=== PATIENT | female | born 1950 | race Caucasian/White ===

== ENCOUNTER 2019-05-28 17:49 | Inpatient (IN) ==
[2019-06-05 15:03] VITALS: BP 104/36
== END 2019-06-05 16:16 | disposition home or self-care (01) | DRG 291 ==
LOC: ED 17:49 → 3N 22:02 → SUATTDRO 22:02
PROVIDERS: ATTEND Internal Medicine

== ENCOUNTER 2019-06-22 05:16 | Inpatient (IN) ==
[2019-06-22 07:45] LABS: URINE SOURCE CATH
[2019-06-22 07:48] LABS: BILIRUBIN URINE NEGATIVE (NEGATIVE); BLOOD URINE NEGATIVE (NEGATIVE); COLOR YELLOW; GLUCOSE URINE NEGATIVE (NEGATIVE); KETONE URINE TRACE mg/dL (NEGATIVE); LEUKOCYTES URINE NEGATIVE (NEGATIVE); NITRITE URINE NEGATIVE (NEGATIVE); PROTEIN URINE 30 mg/dL (NEGATIVE); SP GRAVITY URINE 1.016; TURBIDITY URINE CLEAR (CLEAR); UR EPITHELIAL CELLS <10 /HPF (<10); URINE BACTERIA NEGATIVE /HPF; URINE RBC <10 /HPF (<10); URINE WBC <10 /HPF (<10); UROBILINOGEN URINE NORMAL (NORMAL)
[2019-06-22 19:33] LABS: INR 1.12; PROTIME 14.6 Seconds (11.0-16.0)
[2019-06-23 06:44] LABS: INR 1.2; PROTIME 15.4 Seconds (11.0-16.0)
[2019-06-23 06:55] LABS: BASO# 0.02 X1000 (0.0-0.2); BASO% 0.2 % (0.0-0.8); HEMATOCRIT 33.6 % (37.0-47.0); HEMOGLOBIN 9.8 g/dL (12.0-16.0); IMM GRAN# 0.03 X1000 (0.0-0.04); IMM GRAN% 0.3 % (0.0-0.5); LYMPH# 1.01 X1000 (1.2-3.4); LYMPH% 10.1 % (20.5-51.1); MCH 28.2 PG (27-31); MCHC 29.2 g/dL (33-37); MCV 96.6 FL (81-99); MONO# 0.98 X1000 (0.11-0.59); MONO% 9.8 % (1.7-9.3); MPV 11.4 FL (7.4-10.4); NEUT# 7.84 X1000 (1.4-6.5); NEUT% 78.6 % (42.2-75.2); PLT 191 X1000 (130-400); RBC 3.48 XMIL (4.2-5.4); RDW 16.2 % (11.5-14.5); WBC 9.98 X1000 (4.8-10.8)
[2019-06-23 07:23] LABS: ALB/GLOB RATIO 1.1; CALCIUM 9.8 mg/dL (8.8-10.2); CREATININE 1.2 mg/dL (0.5-0.9); POTASSIUM 3.7 mmol/L (3.5-5.1); TOTAL BILIRUBIN 0.5 mg/dL (0.20-1.00); TOTAL PROTEIN 5.8 g/dL (6.3-8.3)
[2019-06-24 07:33] LABS: INR 1.07
[2019-06-24 07:41] LABS: CALCIUM 9.8 mg/dL (8.8-10.2); CREATININE 1.1 mg/dL (0.5-0.9); POTASSIUM 3.7 mmol/L (3.5-5.1)
[2019-06-24 11:12] LABS: HEMATOCRIT 32.3 % (37.0-47.0); HEMOGLOBIN 9.6 g/dL (12.0-16.0); MCH 28.6 PG (27-31); MCHC 29.7 g/dL (33-37); MCV 96.1 FL (81-99); RBC 3.36 XMIL (4.2-5.4); RDW 16.3 % (11.5-14.5); WBC 6.62 X1000 (4.8-10.8)
[2019-06-25 06:53] LABS: HEMATOCRIT 33.8 % (37.0-47.0); HEMOGLOBIN 10.1 g/dL (12.0-16.0)
[2019-06-25 07:01] LABS: INR 1.19; PROTIME 15.3 Seconds (11.0-16.0)
[2019-06-25 07:16] LABS: CALCIUM 10.3 mg/dL (8.8-10.2); CREATININE 1.2 mg/dL (0.5-0.9); MAGNESIUM 2.1 mg/dL (1.5-2.7)
[2019-06-26 06:55] LABS: HEMOGLOBIN 9.9 g/dL (12.0-16.0)
[2019-06-26 07:09] LABS: INR 1.52; PROTIME 18.6 Seconds (11.0-16.0)
[2019-06-26 07:21] LABS: CALCIUM 10.5 mg/dL (8.8-10.2); CREATININE 1.3 mg/dL (0.5-0.9); POTASSIUM 4.4 mmol/L (3.5-5.1)
[2019-06-27 07:33] LABS: BASO# 0.01 X1000 (0.0-0.2); BASO% 0.2 % (0.0-0.8); EOS% 3.3 % (0.0-10.0); HEMATOCRIT 32.5 % (37.0-47.0); HEMOGLOBIN 9.5 g/dL (12.0-16.0); IMM GRAN# 0.04 X1000 (0.0-0.04); IMM GRAN% 0.7 % (0.0-0.5); LYMPH# 0.73 X1000 (1.2-3.4); MCH 27.5 PG (27-31); MCHC 29.2 g/dL (33-37); MCV 94.2 FL (81-99); MONO# 0.91 X1000 (0.11-0.59); MONO% 14.9 % (1.7-9.3); MPV 10.3 FL (7.4-10.4); NEUT% 68.9 % (42.2-75.2); PLT 246 X1000 (130-400); RBC 3.45 XMIL (4.2-5.4); RDW 16.3 % (11.5-14.5); WBC 6.09 X1000 (4.8-10.8)
[2019-06-27 07:54] LABS: CALCIUM 9.8 mg/dL (8.8-10.2); CREATININE 1.1 mg/dL (0.5-0.9); POTASSIUM 3.9 mmol/L (3.5-5.1)
[2019-06-27 08:06] LABS: INR 2.51; PROTIME 27.7 Seconds (11.0-16.0)
[2019-06-27 11:22] VITALS: BP 138/57
== END 2019-06-27 13:49 | disposition home or self-care (01) | DRG 330 ==
LOC: SURHOLD 05:16 → 4N 07:22
PROVIDERS: ADMIT Internal Medicine; ATTEND Surgery

== ENCOUNTER 2019-07-05 04:36 | Inpatient (IN) ==
[2019-07-05] MEDS ORDERED: DEMEROL IV ONE (05:17)
[2019-07-05] MEDS ORDERED: ZOFRAN IV ONE (05:17)
--- NOTE | 2019-07-05 06:48 | PROVIDER DOCUMENTATION ---
HPI-Rash/Wound/ReCheck - General Chief Complaint: Post Op Complaint Stated Complaint: SYLVESTER CAME OUT AGAIN Time Seen by Provider: 07/05/19 04:51 Source: patient, family Allergies/Adverse Reactions: Allergies Allergy/AdvReac Type Severity Reaction Status Date / Time codeine Allergy Mild HIVES Verified 07/05/19 05:08 latex Allergy RASH Verified 07/05/19 05:08 Home Medications: Home Medication List Medication Instructions Recorded Confirmed Last Taken Type PRAVAstatin [Pravachol] 40 mg PO QHS 05/14/16 07/05/19 06/21/19 19:30 History Amiodarone HCl 200 mg PO DAILY 01/22/18 07/05/19 06/22/19 05:37 History Nebivolol [Bystolic] 5 mg PO DAILY 01/22/18 07/05/19 06/22/19 05:00 History Zolpidem Tartrate 5 mg PO QHS 01/22/18 07/05/19 06/21/19 19:30 History Torsemide [Demadex] 40 mg PO DAILY #60 tab 01/24/18 07/05/19 06/21/19 09:00 Rx Albuterol 2.5MG/Ipratrop 0.5MG 1 appful INH Q4-6H PRN PRN 05/29/19 07/05/19 06/22/19 04:30 History [Duoneb (A & A)] Budesonide 1 applicatn INH Q4-6H PRN PRN 05/29/19 07/05/19 06/22/19 04:35 History Divalproex [Depakote] 500 mg PO DAILY 05/29/19 07/05/19 06/22/19 05:30 History Iron,Carbonyl/Ascorbic Acid [Iron 1 tab PO DAILY 05/29/19 07/05/19 06/21/19 08:00 History 100-Vitamin C Tablet] Levothyroxine [Synthroid] 125 microgm PO DAILY 05/29/19 07/05/19 06/21/19 08:00 History Pramipexole [Mirapex] 0.5 mg PO QHS 05/29/19 07/05/19 06/21/19 19:30 History Folic Acid 1 mg PO BID #60 tab 06/05/19 07/05/19 06/21/19 19:30 Rx Pantoprazole [Protonix] 40 mg PO DAILY #90 tab 06/05/19 07/05/19 06/22/19 05:00 Rx Warfarin [Coumadin] 2 mg PO DIRECTED 06/16/19 07/05/19 06/01/19 20:00 History Tramadol [Ultram] 50 mg PO Q6H PRN PRN #15 tab 06/27/19 07/05/19 Unknown Rx Warfarin [Coumadin] 4 mg PO DIRECTED 06/27/19 07/05/19 Unknown History Hydrocodone/Acetaminophen [[place] 1 - 2 ea PO Q4-6H PRN PRN #16 tab 06/28/19 07/05/19 Unknown Rx 5-325 Tablet] - History of Present Illness-Dermatology Nature of Presenting Problem: 69 y/o WF return to Er for further wound dehiscence of abdominal surgical wound. She was seen here last night for similar complaint that was much smaller at that time. Location: reports: torso (ventral abdominal wall) Quality: reports: burning, painful Severity: reports: moderate Onset/Duration: reports: 24 hours ago Timing: reports: still present, getting worse Context/Associated Symptoms: reports: incised wound (recent bowel resection for colon mass per pt.) Similar Symptoms Previously?: Yes Recently seen or treated by another doctor?: Yes - Recheck Treated days ago.: 1 Previous Treatment: other (wound dehiscense) Symptoms since procedure:: reports: pain Review of Systems - Adult - REVIEW OF SYSTEMS - ADULT Constitutional: reports: no symptoms reported, see HPI Eyes: reports: no symptoms reported, see HPI Ears, Nose, Mouth & Throat: reports: no symptoms reported, see HPI Cardiovascular: reports: no symptoms reported, see HPI Respiratory: reports: no symptoms reported, see HPI Gastrointestinal: reports: no symptoms reported, see HPI Genitourinary: reports: no symptoms reported, see HPI Musculoskeletal: reports: no symptoms reported, see HPI Integumentary: reports: see HPI, other (open abdominal wound) Neurological: reports: no symptoms reported, see HPI Psychiatric: reports: no symptoms reported, see HPI Endocrine: reports: no symptoms reported, see HPI Hematologic/Lymphatic: reports: no symptoms reported, see HPI Allergic/Immunologic: reports: no symptoms reported, see HPI All Other Systems: Reviewed and Negative Past History - Adult - PAST MEDICAL HISTORY-ADULT Review of Records: reports: Nursing Assessment Review, Medications Reviewed, Social history reviewed & non-contributory. Major Childhood Illnesses: reports: denies history Cardiovascular: reports: A-Fib, CAD, HTN, hyperlipidemia, CT Respiratory: reports: asthma, COPD, sleep apnea Gastrointestinal: reports: cancer (colon and liver), GERD, liver disease (cancer) Obstetrical/Gynecological: reports: denies history Genitourinary: reports: denies history Musculoskeletal: reports: denies history Neurological: reports: CVA, TIA Endocrine/Immune: reports: thyroid disorder Other Conditions: reports: denies history - PRIOR SURGERIES/PROCEDURES Surgical/Procedure History: reports: recent surgery (colon resection 06/22/19), appendectomy, cholecystectomy, cardiac stent, hysterectomy, bowel surgery (colon resection) - IMMUNIZATION STATUS Childhood Immunizations: See Nurse Assessment Flu Vaccine: See Nurse Assessment - FAMILY HISTORY Family History: CAD over 55 yo Physical Exam-General - PHYSICAL EXAM-ADULT Initial Vital Signs Reviewed: Yes - CONSTITUTIONAL General Appearance: appears well, alert, no apparent distress - EYES Eyes: PERRL/EOMI - HEAD, EARS, NOSE, MOUTH & THROAT HENMT: normocephalic/atraumatic, moist mucous membranes - NECK Neck: non-tender, full range of motion, supple, normal inspection - RESPIRATORY Respiratory: chest non-tender, lungs clear, normal breath sounds, no pleuratic chest pain, no respiratory distress, no accessory muscle use - CARDIOVASCULAR Cardiovascular: normal peripheral pulses, regular rate, rhythm, no edema, no gallop, no JVD, no murmur - GASTROINTESTINAL (ABDOMEN) Abdominal Exam: normal bowel sounds, non tender, soft, no organomegaly, no pulsatile mass - LYMPHATIC Lymphatic: no adenopathy - MUSCULOSKELETAL Back Exam: normal inspection, no CVA tenderness, no vertebral tenderness Extremity: normal range of motion, non-tender, normal gait, normal inspection, no pedal edema, no calf tenderness - SKIN Integumentary: erythema, tenderness, other (approximately 12 cm wound dehiscence to abdominal wall at surgical site) - NEUROLOGIC Neurologic: customer support associate II-XII nml as tested, grossly normal, no motor/sensory deficits - PSYCHIATRIC Psych/Mental Status: normal mood/affect, normal thought content, normal thought process, oriented x 3 Progress - PLAN OF CARE/RESULTS Progress/Plan/Lab Results: Vital Signs - 8 hr 12/22/19 04:43 Temperature 98.2 F Pulse Rate 52 L Respiratory Rate 15 Blood Pressure 126/58 O2 Sat by Pulse Oximetry 76 L Orders Category Date Time Status Meperidine [Demerol] Med 07/05/19 05:17 Discontinued 25 mg IV NOW ONE Ondansetron [Zofran] Med 07/05/19 05:17 Discontinued 4 mg IV NOW ONE - CONSULTS/PCP/HOSPITALIST Notification #1 *Consult/PCP/Hospitalist*: Dr Yan Time Discussed: 06:40 Consult Disposition: Will see in ED, Admit Departure - Departure Date of Disposition Decision: 07/05/19 Time of Disposition Decision: 06:53 DIAGNOSIS: Wound dehiscence, surgical Disposition: ADMITTED INPATIENT 09 Certified Medical Emergency: Emergent Condition: Fair Referrals and Follow-Ups: Kalpesh Knox MD [Primary Care Provider] - - Critical Care Note This patient required my direct & personal management of CC.: No Attestation - Physician/ ROVERTO Attestation Patient care was provided by Advanced Practice Provider:: No The physician spent face to face time with patient:: Yes Advanced Practice Provider documentation review:: Supervising physician onsite and consulted in the evaluation and care of this patient. The physician did have a face to face encounter with the patient.
[2019-07-05] MEDS ORDERED: FENTANYL ONE (08:19)
[2019-07-05] MEDS ORDERED: DIPRIVAN 1% ONE (08:20)
[2019-07-05] MEDS ORDERED: XYLOCAINE-MPF 2% ONE (08:24)
[2019-07-05] MEDS ORDERED: ROBINUL ONE ×2 (08:24→09:26)
[2019-07-05] MEDS ORDERED: QUELICIN (DOSE) ONE (08:24)
--- NOTE | 2019-07-05 08:29 | HISTORY AND PHYSICAL ---
HISTORY OF PRESENT ILLNESS: Ms. Tejal Ferro is a 69-year-old white female, patient of Dr. Knox, who on 06/22/2019 underwent a colon resection for what appears to be metastatic colon cancer. She is to see him tomorrow in our outpatient offices, but presented to the emergency department with a wound dehiscence. We are asked to evaluate it. PAST MEDICAL HISTORY: Atrial fibrillation, coronary artery disease, hypertension, hyperlipidemia, history of VA, asthma, COPD, sleep apnea, gastroesophageal reflux disease, history of TIA, hypothyroidism. PAST SURGICAL HISTORY: Colon resection on 06/22/[address] Knox, appendectomy, cholecystectomy, cardiac stent, hysterectomy. MEDICATIONS: [place], Coumadin, tramadol, Protonix, vitamins, Mirapex, Depakote, budesonide, albuterol, Demadex, zolpidem, Bystolic, amiodarone, Pravachol. ALLERGIES: Codeine and latex. REVIEW OF SYSTEMS: Evidently, she has metastatic disease to her liver. Otherwise, the review of systems was essentially negative, except for the history of present illness. FAMILY HISTORY: Reviewed and is noncontributory. PHYSICAL EXAMINATION: VITAL SIGNS: Her temperature is 98.2 degrees, pulse rate 52, blood pressure 126/58, O2 saturation 76%, but she has no work of breathing. GENERAL: Ms. Ferro is an older lady in no acute distress. HEENT: She has no jaundice. No oral lesions. No cervical or supraclavicular lymphadenopathy. HEART: Her heart has an irregular rate. LUNGS: She had some expiratory wheezing, but no significant work of breathing. ABDOMEN: Her abdomen has mostly an upper midline incision, which is dehisced, and there is small bowel visible within the wound. Her abdomen is not tightly distended. RECTAL/VAGINAL: Not performed. EXTREMITIES: She does have palpable femoral pulses. She has no significant peripheral edema. NEUROLOGIC: She has no focal deficit. IMPRESSION: Wound dehiscence in a 69-year-old lady, status post colon resection per Dr. Knox on 06/22/2019. She has multiple medical problems, including atrial fibrillation, on Coumadin. PLAN: Urgent return to the operating room for exploratory laparotomy and reclosure of her upper midline incision. I have discussed this in detail with the patient and her family at the bedside, including risks of bleeding, infection, injury to the bowel, and ventral hernia. She understands her increased risk of bleeding because of her Coumadin, and the need for surgery, and she wants to proceed. cc: Stefania Yan MD
[2019-07-05 08:44] LABS: BASO# 0.01 X1000 (0.0-0.2); BASO% 0.1 % (0.0-0.8); EOS# 0.14 X1000 (0.0-0.7); EOS% 1.3 % (0.0-10.0); HEMATOCRIT 31.1 % (37.0-47.0); HEMOGLOBIN 9.2 g/dL (12.0-16.0); IMM GRAN% 0.9 % (0.0-0.5); LYMPH# 0.99 X1000 (1.2-3.4); LYMPH% 9.3 % (20.5-51.1); MCH 26.9 PG (27-31); MCHC 29.6 g/dL (33-37); MCV 90.9 FL (81-99); MONO# 1.25 X1000 (0.11-0.59); MONO% 11.7 % (1.7-9.3); MPV 9.8 FL (7.4-10.4); NEUT# 8.18 X1000 (1.4-6.5); NEUT% 76.7 % (42.2-75.2); PLT 451 X1000 (130-400); RBC 3.42 XMIL (4.2-5.4); RDW 16.4 % (11.5-14.5); WBC 10.67 X1000 (4.8-10.8)
[2019-07-05 09:08] LABS: INR 6.68; PROTIME 60.8 Seconds (11.0-16.0); PTT 110.1 Seconds (22.3-41.8)
[2019-07-05] MEDS ORDERED: KEFZOL 1 GM/D5W 1 GM/50 ML IVPB IV ONE (09:11)
[2019-07-05 09:12] LABS: CALCIUM 9.2 mg/dL (8.8-10.2); CREATININE 1.2 mg/dL (0.5-0.9); POTASSIUM 3.8 mmol/L (3.5-5.1)
[2019-07-05] MEDS ORDERED: KEFZOL 1 GM/D5W 1 GM/50 ML IVPB ONE (09:14)
[2019-07-05] MEDS ORDERED: EPHEDRINE ONE (09:14)
[2019-07-05] MEDS ORDERED: ZEMURON ONE ×2 (09:20→09:58)
[2019-07-05] MEDS ORDERED: DECADRON ONE (09:26)
[2019-07-05] MEDS ORDERED: ZOFRAN ONE (09:26)
[2019-07-05] MEDS ORDERED: NEOSTIGMINE ONE (09:27)
[2019-07-05 10:05] LABS: INR 7.03; PROTIME 63.3 Seconds (11.0-16.0)
[2019-07-05] MEDS ORDERED: BRIDION ONE (10:20)
[2019-07-05] MEDS ORDERED: D5 1/2 NS + KCL 20 MEQ 1,000 ML ONE (10:38)
[2019-07-05] MEDS ORDERED: OFIRMEV 1000 MG/ISOTONIC SOLN 1,000 MG/100 ML BOTTLE ONE (10:38)
--- NOTE | 2019-07-05 10:54 | Diag Imaging Result Doc PS360 ---
EXAM: CHEST-PORTABLE INDICATION: post op CVL placement TECHNIQUE: One view COMPARISON: 06/05/2019 FINDINGS: There is a newly placed right IJ line. The tip projecting over the lower SVC a few centimeters superior to the atriocaval junction in the expected position. The central vasculature is prominent and there is interstitial thickening indicating pulmonary venous congestion and interstitial edema. There is no discrete pleural fluid collection or pneumothorax. There is stable cardiomegaly. IMPRESSION: 1.Interval placement of right CVL with no evidence of pneumothorax. 2.Findings indicative of pulmonary venous congestion and pulmonary edema. Electronically signed by Jackson Guerrero 07/05/2019 10:52 AM
[2019-07-05] MEDS ORDERED: DUONEB (A & A) INH ONE (10:56)
--- NOTE | 2019-07-05 10:57 | OPERATIVE NOTE ---
PROCEDURE DATE: 07/05/2019 PREOPERATIVE DIAGNOSIS: Upper midline wound dehiscence, status post colon resection for metastatic colon cancer. POSTOPERATIVE DIAGNOSIS: Upper midline wound dehiscence, status post colon resection for metastatic colon cancer. PRINCIPAL PROCEDURE: Exploratory laparotomy with lysis of adhesions and re-closure of upper midline wound dehiscence. SURGEON: Stefania Yan MD. PICKER/PULLER: Steph Cevallos RN. ANESTHESIA: General. ESTIMATED BLOOD LOSS: 100 mL. DRAINS: None. INDICATIONS: Tejal Ferro is a 69-year-old white female who on 06/22/2019 underwent an open colon resection for metastatic colon cancer per Dr. Knox. Her wound dehisced over the last 24 hours. She presented to the emergency department. An urgent surgery was recommended to reclose her abdomen. FINDINGS: The entire length of the upper midline incision dehisced, and small bowel was in the wound. We mobilized the adhesions to the anterior abdominal wall circumferentially around the upper midline incision, and we used retention sutures and fascial sutures to reclose the wound. DESCRIPTION OF PROCEDURE: The patient was brought to the operating room, placed supine, received general anesthesia, and was intubated. A Myles catheter tube was placed. Anesthesia, Dr. Hill Plasencia, placed a central venous line in the right side of neck. It must be noted that her INR was elevated because she had been on Coumadin for atrial fibrillation, but we felt that this case was urgent, and we moved ahead. She did receive some fresh frozen plasma during the case. There was not any undue bleeding intra-abdominally. I carefully took down using finger fracture the small bowel that was adhered to the wound and the anterior abdominal wall circumferentially around the open or dehisced upper midline incision. I had to use the cautery to transect some of the fatty tissue. I was able to take down all the adhesions between the bowel and omentum and the anterior abdominal wall. I was able to take it circumferentially around the upper midline incision so that I had room for retention sutures. There was no evidence of a small bowel fistula or undrained intra-abdominal infection. I placed #2 Prolene retention sutures along the length of the wound. And before tying these retention sutures, I reapproximated the fascia with a running #1 Prolene stitch. I used a thin ribbon to make sure that the stitches were placed correctly within the fascia and not injuring the bowel below. I tied my retention sutures as I was closing the fascia with a running #1 Prolene stitch. I did not close the skin but packed it open with iodoform gauze to prevent wound infection. The fascia was closed with a running #1 Prolene stitch, and this closure was reinforced with interrupted simple retention sutures. The wound was then packed open with iodoform gauze. Dressings were applied. An abdominal binder was also placed. Her Myles catheter tube remains in place. She will go to the recovery room, and plans are for her to go to the floor as long as she does well waking up. cc: Stefania Yan MD
[2019-07-05 11:07] LABS: URINE SOURCE CATH
[2019-07-05 11:16] LABS: BILIRUBIN URINE NEGATIVE (NEGATIVE); BLOOD URINE NEGATIVE (NEGATIVE); COLOR YELLOW; GLUCOSE URINE NEGATIVE (NEGATIVE); KETONE URINE NEGATIVE (NEGATIVE); LEUKOCYTES URINE NEGATIVE (NEGATIVE); NITRITE URINE NEGATIVE (NEGATIVE); PH URINE 5.5; PROTEIN URINE NEGATIVE (NEGATIVE); TURBIDITY URINE CLEAR (CLEAR); UROBILINOGEN URINE NORMAL (NORMAL)
[2019-07-05 11:17] LABS: UR EPITHELIAL CELLS <10 /HPF (<10); URINE BACTERIA NEGATIVE /HPF; URINE RBC <10 /HPF (<10); URINE WBC <10 /HPF (<10)
[2019-07-05] MEDS: PHENERGAN ONE ×2 (11:18→11:47)
[2019-07-05] MEDS: MORPHINE ONE ×3 (11:20→11:42)
[2019-07-05] MEDS ORDERED: DUONEB (A & A) ONE (11:40)
[2019-07-05] MEDS: D5 1/2 NS + KCL 20 MEQ 1,000 ML IV SCH (12:50)
[2019-07-05] MEDS: DUONEB (A & A) INH SCH ×3 (15:22→23:39)
[2019-07-05] MEDS: OFIRMEV 1000 MG/ISOTONIC SOLN 1,000 MG/100 ML BOTTLE IV SCH ×2 (16:05→21:23)
[2019-07-05] MEDS: KEFZOL 1 GM/D5W 1 GM/50 ML IVPB IV SCH ×2 (16:57→21:20)
[2019-07-05] MEDS: PULMICORT INH SCH (19:30)
[2019-07-05] MEDS: AMBIEN PO SCH (21:20)
[2019-07-05] MEDS: PRAVACHOL PO SCH (21:20)
[2019-07-05] MEDS: MIRAPEX PO SCH (21:20)
[2019-07-06] MEDS: KEFZOL 1 GM/D5W 1 GM/50 ML IVPB IV SCH ×4 (03:32→22:51)
[2019-07-06] MEDS: D5 1/2 NS + KCL 20 MEQ 1,000 ML IV SCH ×2 (03:32→17:39)
[2019-07-06] MEDS: OFIRMEV 1000 MG/ISOTONIC SOLN 1,000 MG/100 ML BOTTLE IV SCH ×4 (03:32→22:50)
[2019-07-06] MEDS: MORPHINE IV PRN ×2 (03:46→20:52)
[2019-07-06] MEDS: PROTONIX PO SCH (06:13)
[2019-07-06] MEDS: SYNTHROID PO SCH (06:13)
--- NOTE | 2019-07-06 06:43 | GENERAL SURGERY PROGRESS NOTE ---
DATE: 07/06/2019 SUBJECTIVE: Reviewed notes from the weekend. Discussed with Dr. Yan. The patient had a dehiscence and had to go emergently to the operating room. She has been doing okay since then. She has been hemodynamically stable. She has been on a clear liquid diet. She has had an issue with her INR being above 7. She had a repeat INR this morning. She takes her Coumadin normally. She was given FFP. Given her medical comorbidities, we will have the hospitalist evaluate her. We will continue current treatment. cc: MD Stefania Vora MD
[2019-07-06 06:47] LABS: EOS# 0.02 X1000 (0.0-0.7); EOS% 0.2 % (0.0-10.0); HEMATOCRIT 29.5 % (37.0-47.0); HEMOGLOBIN 8.6 g/dL (12.0-16.0); IMM GRAN# 0.07 X1000 (0.0-0.04); IMM GRAN% 0.7 % (0.0-0.5); LYMPH# 0.66 X1000 (1.2-3.4); LYMPH% 6.5 % (20.5-51.1); MCHC 29.2 g/dL (33-37); MCV 92.8 FL (81-99); MONO# 0.91 X1000 (0.11-0.59); MONO% 8.9 % (1.7-9.3); NEUT# 8.51 X1000 (1.4-6.5); NEUT% 83.7 % (42.2-75.2); PLT 474 X1000 (130-400); RBC 3.18 XMIL (4.2-5.4); RDW 16.2 % (11.5-14.5); WBC 10.17 X1000 (4.8-10.8)
[2019-07-06 06:56] LABS: INR 4.5; PROTIME 44.3 Seconds (11.0-16.0)
[2019-07-06 07:27] LABS: CALCIUM 9.4 mg/dL (8.8-10.2); CREATININE 1.1 mg/dL (0.5-0.9); POTASSIUM 4.4 mmol/L (3.5-5.1)
[2019-07-06] MEDS: PULMICORT INH SCH ×2 (07:38→20:38)
[2019-07-06] MEDS: DUONEB (A & A) INH SCH ×5 (07:38→23:05)
--- NOTE | 2019-07-06 07:49 | Diag Imaging Result Doc PS360 ---
KUB ABDOMEN - 07/06/2019 INDICATION: surgery site COMPARISON: None FINDINGS: There is a nonobstructive bowel gas pattern. No free air or abdominal calcifications. There are surgical clips in the right upper quadrant and in the pelvis. IMPRESSION: No acute disease. Electronically signed by Mook Washburn 07/06/2019 7:47 AM
--- NOTE | 2019-07-06 07:50 | Diag Imaging Result Doc PS360 ---
CHEST-PORTABLE - 07/06/2019 INDICATION: postop COMPARISON: 07/05/2019 FINDINGS: Stable right central line in good position. Stable cardiomegaly and pulmonary vascular congestion. Stable diffuse interstitial infiltrates bilaterally suggesting pulmonary edema. No pneumothorax or significant pleural effusion. IMPRESSION: No change from prior. Electronically signed by Mook Washburn 07/06/2019 7:48 AM
[2019-07-06] MEDS: DEMADEX PO SCH (09:23)
[2019-07-06] MEDS: DEPAKOTE PO SCH (09:24)
[2019-07-06] MEDS: CORDARONE PO SCH (09:25)
[2019-07-06] MEDS: BYSTOLIC PO SCH (09:26)
--- NOTE | 2019-07-06 16:05 | CONSULTATION ---
DATE OF CONSULTATION: 07/06/2019 CONSULTING PHYSICIAN: Dr. Kalpesh Knox REASON FOR CONSULT: Medical Management HISTORY OF PRESENT ILLNESS: Ms. Ferro is a 69-year-old female with a history of metastatic colon cancer who is status post a colon resection with open liver biopsy on June 22, 2019. She reports having an uneventful hospitalization. She was discharged on June 27. She presented to the emergency room on June 28 complaining of drainage from her staple line and feeling restless at night. She was evaluated by the emergency room physician and, per their records, found to have an intact staple line with no dehiscence and moderate serosanguineous drainage for which she was instructed to continue changing the bandages as before. She was found to have an INR of 4.4, and she was instructed at this time to hold her Coumadin for 2 days and have it rechecked. They were unable to tell me if they did in fact told it for 2 days and they state they did not get the INR rechecked until she returned to the emergency room on the . They report continued drainage, prompting another ER visit on the due to olivia coming out of her surgical incision and increased serosanguineous drainage. She was evaluated by the emergency room physician, found to have dehiscence in 2 places with serous drainage, surrounding erythema, with the 1st opening 50 mm long and 25 mm wide, the 2nd being 45 mm long and 20 mm wide. According to the chart, this was discussed with Dr. Yan and the patient declined admission stating that she wanted to go home and follow up with Surgery on Saturday. She returned to the emergency room on July 05 at this time. She was found to have further dehiscence of her wound. Dr. Yan was informed. He did evaluate the patient in the emergency room. She was taken to surgery for exploratory laparoscopy with lysis of adhesions and re-closure of upper midline wound dehiscence. She was found to have an INR of 4.43 on her ER visit on the and she was instructed to hold her Coumadin for 2 days and call the [facility] or the person regulating her Coumadin dosing. She and her were not clear on if in fact she did hold the dose and she did not have her INR rechecked. On return to the emergency room her INR was found to be 7.03 for which she was given fresh frozen plasma and repeat INR this morning is 4.50. She denies any bloody stools, any black or bloody vomitus. Urine is clear yellow to her Myles. She denies any bruising or bleeding gums. PAST MEDICAL HISTORY: Atrial fibrillation with chronic anticoagulation, coronary artery disease, hypertension, hyperlipidemia, COPD, obstructive sleep apnea, gastroesophageal reflux disease, hypothyroid, colon cancer. PAST SURGICAL HISTORY: Colon resection 06/22/2019, appendectomy, cholecystectomy, hysterectomy. ALLERGIES: Codeine and latex. HOME MEDICATIONS: A list will be obtained by the nursing staff and once verified will review and restart as appropriate. SOCIAL HISTORY: She denies alcohol, tobacco, or illicit drug use. Family history is positive for hypertension and coronary artery disease. REVIEW OF SYSTEMS: Discussed with patient with pertinent positives stated in the HPI. She denied any syncope, dizziness, chest pain, palpitations, any shortness of breath, cough, fever, chills, night sweats, any nausea, vomiting, diarrhea, constipation, black or bloody vomitus or stools, any hematuria, dysuria, frequency or urgency. PHYSICAL EXAMINATION: General: This is a 69-year-old female who is lying on the bed in no distress. Vital Signs: Blood pressure is 114/44 with a heart rate of 62, respirations are 18, temperature is 97.6 degrees oral with O2 saturations that are 93 to 96 percent on 2 L nasal cannula. HEENT: Head is normocephalic, atraumatic. Mucous membranes are moist. Neck: Supple with trachea midline. Cardiovascular: Irregularly irregular rate and rhythm. S1 and S2 appreciated. She has no lower extremity edema. Calves are nontender bilateral with peripheral pulses palpable x4 extremities. Pulmonary: Breath sounds are clear with no increased work of breathing noted. Chest rises and falls symmetric respiration. Chest wall is nontender to palpation. Gastrointestinal: Abdomen is soft with dressing dry and intact. Bowel sounds are positive in all 4 quadrants. Genitourinary: Myles is patent to bedside bag with urine clear yellow. Neurologic: She is alert and oriented x3. Skin: Warm and dry. LABORATORY DATA: 1. WBC is 10.1 with hemoglobin 8.6, hematocrit 29.5, and platelets 474,000. INR was 7.03 on 07/05. This morning, she is 4.50. Sodium is 135, potassium 3.8, BUN 19, creatinine 1.2 with a glucose of 107. Urinalysis is essentially negative. 2. Abdominal x-ray revealed no acute disease. 3. Chest x-ray revealed interval placement of right central venous line with no evidence of pneumothorax. Findings indicative of pulmonary venous congestion and pulmonary edema. ASSESSMENT AND PLAN: 1. Wound dehiscence. 2. Metastatic colon cancer. 3. Chronic atrial fibrillation on chronic anticoagulation. 4. Hypercoagulable state. 5. Hypertension. 6. Chronic obstructive pulmonary disease on home O2. 7. Obstructive sleep apnea. 8. Gastroesophageal reflux disease. 9. Hypothyroid. PLAN: The patient is status post exploratory laparoscopy with lysis of adhesions and re-closure of upper midline wound dehiscence which she has tolerated well. She is being followed by Dr. Kalpesh Knox, General Surgery. Continue with IV hydration and antibiotics per Dr. Yan with DuoNeb q.4 hours when awake. We will continue her home medications. We will order for her to be up in the chair at least 3 times a day to begin walking. Check a CBC, PT, INR and a renal profile in the morning. We will continue clear liquids as per Dr. Yan and diet will be advanced per Dr. Kalpesh Knox. Plan was discussed with Dr. Clement. Further treatments pending hospital course. Dictated by SHARLENE Rowe for Sebastian Vee MD cc: SHARLENE Rowe MD Lynn R. Buckner, MD
--- NOTE | 2019-07-06 20:47 | HISTORY AND PHYSICAL ---
ADDENDUM: Patient seen and examined by me [id number]. All the laboratory, vital signs and images were reviewed. The patient presented and was admitted for wound dehiscence from recent surgery due to metastatic colon cancer. This has been already repaired yesterday by Dr. Yan. He did an exploratory laparotomy with lysis of adhesions and re-closure of upper midline wound dehiscence. This patient seems to be doing good. She was recently discharged. Her laboratory seems to be stable, except the INR which is elevated. It is trending down now. She received a couple units of FFP. I will not restart this patient on warfarin for now, but I asked the patient to monitor this closely as an outpatient since she has a history of atrial fibrillation as well. I will continue with same management for now. Her wound is closed and she has a dressing on it. I do not see any source of bleeding at this time. I agree with the rest of the nurse practitioner's assessment and plan. cc: MD Stefania Khanna MD
[2019-07-06] MEDS: PRAVACHOL PO SCH (20:51)
[2019-07-06] MEDS: AMBIEN PO SCH (20:51)
[2019-07-06] MEDS: MIRAPEX PO SCH (20:54)
[2019-07-07] MEDS: KEFZOL 1 GM/D5W 1 GM/50 ML IVPB IV SCH ×4 (04:44→21:27)
[2019-07-07] MEDS: OFIRMEV 1000 MG/ISOTONIC SOLN 1,000 MG/100 ML BOTTLE IV SCH ×4 (04:44→21:27)
[2019-07-07] MEDS: D5 1/2 NS + KCL 20 MEQ 1,000 ML IV SCH ×3 (04:44→18:16)
[2019-07-07] MEDS: SYNTHROID PO SCH (06:47)
[2019-07-07] MEDS: PROTONIX PO SCH (06:47)
[2019-07-07 07:06] LABS: HEMATOCRIT 31.1 % (37.0-47.0); HEMOGLOBIN 9.1 g/dL (12.0-16.0); MCH 27.5 PG (27-31); MCHC 29.3 g/dL (33-37); MPV 9.8 FL (7.4-10.4); RBC 3.31 XMIL (4.2-5.4); RDW 16.6 % (11.5-14.5); WBC 11.36 X1000 (4.8-10.8)
[2019-07-07 07:16] LABS: INR 5.13; PROTIME 49.2 Seconds (11.0-16.0)
[2019-07-07 07:25] LABS: ALBUMIN 2.6 g/dL (3.5-5.0); CALCIUM 9.3 mg/dL (8.8-10.2); CREATININE 1.1 mg/dL (0.5-0.9); PHOSPHORUS 2.9 mg/dL (2.7-4.5); POTASSIUM 4.5 mmol/L (3.5-5.1)
[2019-07-07] MEDS: PULMICORT INH SCH ×2 (07:54→19:54)
[2019-07-07] MEDS: DUONEB (A & A) INH SCH ×5 (07:54→23:18)
--- NOTE | 2019-07-07 10:05 | GENERAL SURGERY PROGRESS NOTE ---
DATE: 07/07/2019 SUBJECTIVE: Patient seems to be doing okay. She has passed a little bit of gas. She is not actively sick to her stomach, but it has just been a little bit of gas. OBJECTIVE: Vital Signs: Patient is currently afebrile. Her vital signs are stable. General: No acute distress. Cardiovascular: Regular rate and rhythm. Lungs: Grossly clear. Abdomen: Soft. Dressing in place. Binder in place. Some hypoactive bowel sounds. ASSESSMENT AND PLAN: A 69-year-old female status post exploratory laparotomy for wound dehiscence. We will at this time continue current diet. We will get her Myles catheter out. We will continue to try to encourage ambulation. I appreciate the hospitalist's help for medical management. Her INR is still greater than 4 so we are holding her Coumadin for right now. She does not need any other prophylaxis for her DVTs except SCDs. We will continue to follow. cc: MD Sebastian Vora MD MTDDonald
[2019-07-07] MEDS: DEMADEX PO SCH (10:17)
[2019-07-07] MEDS: BYSTOLIC PO SCH (10:17)
[2019-07-07] MEDS: DEPAKOTE PO SCH (10:17)
[2019-07-07] MEDS: CORDARONE PO SCH (13:17)
--- NOTE | 2019-07-07 16:59 | PROGRESS NOTE ---
DATE: 07/07/2019 SUBJECTIVE: When I evaluated this patient, she was resting in bed. Apparently, she had a good night, but she was complaining of a lot of pain this morning. She is not having bowel movement and, as per the patient, she does not remember if she has been passing gas or not. OBJECTIVE: Vital Signs: Temperature 98.6 degrees, pulse 65, respiratory rate 17, blood pressure 153/57, oxygen saturation 95% on 4 L of nasal cannula. HEENT: Head normocephalic, no trauma. PERRLA. Neck: Supple. No JVD. No masses. Central trachea. Chest: Decreased breath sounds globally with prolonged expiratory phase and some end-expiratory wheezing. Abdomen: Soft. Generalized tenderness to palpation. Decreased bowel sounds but present a little bit. She does have a binder covering most of the abdomen and the wound. Extremities: No clubbing, no cyanosis. Neurological: The patient is sleepy, but arousable. She is oriented, but sleepy. LABORATORY DATA: WBC 11.3, hemoglobin 9.1, hematocrit 31.1, platelets 477,000. INR 5.1. Sodium 136, potassium 4.5, chloride 94, bicarbonate 33, BUN 14, creatinine 1.1, glucose 104, calcium 2.6. ASSESSMENT AND PLAN: 1. Wound dehiscence, status post exploratory laparotomy with lysis of adhesions and re-closure of upper midline wound. Postoperative day #2. This patient is complaining of pain today. She is not having bowel movements and possibly no gas either. I think she has some bowel sounds, though. We will continue with same management. Surgery Department on board. 2. Metastatic colon cancer status post open splenic flexure mobilization with transverse colectomy and liver biopsy. This procedure has been done on 06/22/2019, now presented with wound dehiscence. 3. Chronic atrial fibrillation on chronic anticoagulation. Her INR is elevated and I will continue holding the warfarin. 4. Hypercoagulable state as above. 5. Hypertension, stable. 6. Chronic obstructive pulmonary disease on home O2. She is wheezing a little bit. She is getting breathing treatment. 7. Obstructive sleep apnea, aware. 8. Gastroesophageal reflux disease. Continue with same management. 9. Hypothyroidism. She is on levothyroxine. 10. Chronic kidney disease, aware. This is her baseline. cc: Sebastian Vee MD
[2019-07-07] MEDS: MORPHINE IV PRN ×2 (18:30→22:57)
[2019-07-07] MEDS: MIRAPEX PO SCH (21:27)
[2019-07-07] MEDS: PRAVACHOL PO SCH (21:27)
[2019-07-07] MEDS: AMBIEN PO SCH (21:27)
[2019-07-08] MEDS: KEFZOL 1 GM/D5W 1 GM/50 ML IVPB IV SCH ×2 (03:30→09:14)
[2019-07-08] MEDS: D5 1/2 NS + KCL 20 MEQ 1,000 ML IV SCH ×3 (03:30→18:30)
[2019-07-08] MEDS: OFIRMEV 1000 MG/ISOTONIC SOLN 1,000 MG/100 ML BOTTLE IV SCH ×4 (03:30→21:34)
--- NOTE | 2019-07-08 05:44 | GENERAL SURGERY PROGRESS NOTE ---
DATE: 07/08/2019 SUBJECTIVE: The patient seems to be doing okay. She is not sick to her stomach. OBJECTIVE: Vital Signs: The patient is currently afebrile, her vital signs are stable. General: No acute distress. Cardiovascular: Regular rate and rhythm. Lungs: Grossly clear. Abdomen: Soft, appropriately tender. Bowel sounds auscultated. ASSESSMENT/PLAN: A 69-year-old female, status post exploratory laparotomy for wound dehiscence. Postoperative state. At this time, the patient seems to be doing okay. We will advance her to a full liquid diet. We will need to keep her ambulating. Her INR is still significantly elevated so we will continue to hold her Coumadin. We will keep her on SCDs. cc: MD Sebastian Vora MD
[2019-07-08] MEDS: PROTONIX PO SCH (06:53)
[2019-07-08] MEDS: SYNTHROID PO SCH (06:53)
[2019-07-08 07:16] LABS: HEMATOCRIT 33.2 % (37.0-47.0); HEMOGLOBIN 9.7 g/dL (12.0-16.0); MCH 26.9 PG (27-31); MCHC 29.2 g/dL (33-37); RBC 3.61 XMIL (4.2-5.4); RDW 16.5 % (11.5-14.5); WBC 14.66 X1000 (4.8-10.8)
[2019-07-08 07:35] LABS: INR 4.76; PROTIME 46.4 Seconds (11.0-16.0)
[2019-07-08 07:44] LABS: ALBUMIN 2.6 g/dL (3.5-5.0); CALCIUM 9.5 mg/dL (8.8-10.2); PHOSPHORUS 2.9 mg/dL (2.7-4.5); POTASSIUM 4.3 mmol/L (3.5-5.1)
[2019-07-08] MEDS: DUONEB (A & A) INH SCH ×5 (07:56→22:42)
[2019-07-08] MEDS: PULMICORT INH SCH ×2 (07:57→19:47)
[2019-07-08] MEDS: DEMADEX PO SCH (09:14)
[2019-07-08] MEDS: CORDARONE PO SCH (09:15)
[2019-07-08] MEDS: BYSTOLIC PO SCH (09:15)
[2019-07-08] MEDS: DEPAKOTE PO SCH (09:15)
[2019-07-08] MEDS: MORPHINE IV PRN (10:37)
[2019-07-08] MEDS: ZOSYN 3.375 GM in NS 50 ML IV SCH ×2 (13:37→18:33)
--- NOTE | 2019-07-08 17:33 | PROGRESS NOTE ---
DATE: 07/08/2019 SUBJECTIVE: No acute events overnight. No bowel movement so far and she is not passing gas. OBJECTIVE: Vital Signs: Temperature 97.9 degrees, pulse 56, respiratory rate 22, blood pressure 131/53, oxygen saturation 93 on 4 L of nasal cannula. HEENT: Head normocephalic, no trauma. PERRLA. Neck: Supple. No JVD. No masses. Central trachea. Chest: Decreased breath sounds globally with prolonged expiratory phase and some mild faint expiratory wheezing. Abdomen: Soft, generalized tenderness to palpation. She has a binder around the wound, which I did not remove. Extremities: No edema. No clubbing. No cyanosis. Neurological: Patient is awake and alert. She is oriented x3. No focal deficits. LABORATORY: WBC 14.6, hemoglobin 9.7, hematocrit 33.2, platelet 473,000. Sodium 136, potassium 4.3, chloride 94, bicarbonate 32, BUN 13, creatinine 1, glucose 88, calcium 9.5, albumin 2.6. ASSESSMENT AND PLAN: 1. Wound dehiscence, status post exploratory laparotomy with lysis of adhesions and re-closure of upper midline wound, postoperative day #3. She seems to be doing better. We will continue with same management. Surgery Department on board. 2. Metastatic colon cancer, status post open splenic flexure mobilization with transverse colectomy and liver biopsy. This procedure was done on 06/22/2019, now presented with wound dehiscence. 3. Chronic atrial fibrillation, on chronic anticoagulation. INR still elevated. Continue holding warfarin. 4. Hypercoagulable state. As above. 5. Hypertension. Stable. 6. Chronic obstructive pulmonary disease, on home oxygen. Continue with same management. 7. Obstructive sleep apnea. Aware. 8. Gastroesophageal reflux disease. Continue with the same management. 9. Hypothyroidism. Continue with levothyroxine. 10. Chronic kidney disease. Aware. This is her baseline. 11. Leukocytosis, is going up a little bit, so I will change her treatment for Uriahn. cc: Sebastian Vee MD
[2019-07-08] MEDS: MIRAPEX PO SCH (21:32)
[2019-07-08] MEDS: AMBIEN PO SCH (21:32)
[2019-07-08] MEDS: PRAVACHOL PO SCH (21:32)
[2019-07-09] MEDS: ZOSYN 3.375 GM in NS 50 ML IV SCH ×4 (01:35→19:22)
[2019-07-09] MEDS: OFIRMEV 1000 MG/ISOTONIC SOLN 1,000 MG/100 ML BOTTLE IV SCH ×3 (03:59→18:09)
--- NOTE | 2019-07-09 06:07 | GENERAL SURGERY PROGRESS NOTE ---
DATE: 07/09/2019 SUBJECTIVE: Patient seems to be doing okay. She is not sick to her stomach. She tolerated her full liquids. She has passed a little bit of gas, but has not had a bowel movement. OBJECTIVE: Vital Signs: Patient is currently afebrile. Her vital signs are stable. General: No acute distress. Cardiovascular: Regular rate and rhythm. Lungs: Grossly clear. Abdomen: Soft. Dressing removed. Packing removed. Incision seems to be healing. Retention sutures in place. ASSESSMENT AND PLAN: A 69-year-old female with metastatic colon cancer status post exploratory laparotomy for wound dehiscence. Postoperative state. At this time she seems to be doing okay. Will advance her to a regular diet. Will clean her wound with Vashe. Her INR has still been elevated, so will continue to hold her Coumadin. Will see what her INR is today. She is on SCDs. cc: MD Sebastian Vora MD
[2019-07-09] MEDS: MORPHINE IV PRN ×2 (06:13→16:06)
[2019-07-09] MEDS: SYNTHROID PO SCH (06:13)
[2019-07-09] MEDS: PROTONIX PO SCH (06:13)
[2019-07-09 07:01] LABS: HEMATOCRIT 30.1 % (37.0-47.0); MCH 27.5 PG (27-31); MCHC 29.9 g/dL (33-37); MPV 9.8 FL (7.4-10.4); RBC 3.27 XMIL (4.2-5.4); RDW 16.5 % (11.5-14.5); WBC 11.99 X1000 (4.8-10.8)
[2019-07-09 07:24] LABS: ALBUMIN 2.4 g/dL (3.5-5.0); CALCIUM 9.3 mg/dL (8.8-10.2); CREATININE 1.2 mg/dL (0.5-0.9)
[2019-07-09 07:40] LABS: PHOSPHORUS 3.6 mg/dL (2.7-4.5)
[2019-07-09] MEDS: DUONEB (A & A) INH SCH ×5 (07:56→23:01)
[2019-07-09] MEDS: PULMICORT INH SCH ×2 (07:56→19:09)
[2019-07-09 08:11] LABS: INR 4.44; PROTIME 43.8 Seconds (11.0-16.0)
[2019-07-09] MEDS: DEMADEX PO SCH (08:28)
[2019-07-09] MEDS: CORDARONE PO SCH (08:29)
[2019-07-09] MEDS: DEPAKOTE PO SCH (08:29)
[2019-07-09] MEDS: BYSTOLIC PO SCH (08:29)
[2019-07-09] MEDS: D5 1/2 NS + KCL 20 MEQ 1,000 ML IV SCH ×2 (08:29→23:06)
[2019-07-09 08:42] LABS: POTASSIUM 4.6 mmol/L (3.5-5.1)
--- NOTE | 2019-07-09 14:56 | PROGRESS NOTE ---
DATE: 07/09/2019 SUBJECTIVE: No acute events overnight. No bowel movement so far, but apparently she has been passing some gas, mostly yesterday during the night. OBJECTIVE: Vital Signs: Temperature 97.8 degrees, pulse 54, respiratory rate 15, blood pressure 123/61, oxygen saturation 97% on 4 L of nasal cannula. HEENT: Head normocephalic. No trauma. PERRLA. Neck: Supple. No JVD. No masses. Central trachea. Chest: Decreased breath sounds globally with prolonged expiratory phase and some mild faint expiratory wheezing. Abdomen: Soft. Generalized tenderness to palpation. Decreased bowel sounds, but present. Extremities: No clubbing, no cyanosis. Neurological: The patient is awake, alert, and oriented x3. No focal deficits. LABORATORY DATA: WBC 11.9, hemoglobin 9, hematocrit 30.1, platelets 416,000. Sodium 135, potassium 4.6, chloride 95, bicarbonate 29, BUN 14, creatinine 1.2, glucose 118, calcium 9.3, albumin 2.4. ASSESSMENT AND PLAN: 1. Wound dehiscence, status post exploratory laparotomy with lysis of adhesions and reclosure of the upper midline wound, postoperative day #4. She seems to be doing good. Will continue with the same management. She was passing some gas, mostly yesterday in the afternoon. Surgery Department on board. 2. Metastatic colon cancer, status post open splenic flexure mobilization with transverse colectomy and liver biopsy. This procedure was done on 06/22/2019, now presented with wound dehiscence. 3. Chronic atrial fibrillation, on chronic anticoagulation. INR is still elevated. Continue to monitor for now. I have been holding warfarin. 4. Hypercoagulable state. Aware. As above. 5. Hypertension, stable. 6. Chronic obstructive pulmonary disease, not in exacerbation. Continue with oxygen. She is also on home oxygen. 7. Obstructive sleep apnea. Aware. 8. Gastroesophageal reflux disease. Continue with the same management. 9. Hypothyroidism. Continue levothyroxine. 10. Chronic kidney disease. This is her baseline. 11. Leukocytosis. This is better. Continue with Zosyn. cc: Sebastian Vee MD
[2019-07-09] MEDS: MIRAPEX PO SCH (23:06)
[2019-07-09] MEDS: PRAVACHOL PO SCH (23:06)
[2019-07-10] MEDS: OFIRMEV 1000 MG/ISOTONIC SOLN 1,000 MG/100 ML BOTTLE IV SCH ×4 (00:49→17:20)
[2019-07-10] MEDS: AMBIEN PO SCH ×2 (00:51→22:02)
[2019-07-10] MEDS: MORPHINE IV PRN ×4 (00:51→17:27)
[2019-07-10] MEDS: ZOSYN 3.375 GM in NS 50 ML IV SCH ×5 (01:29→19:00)
[2019-07-10] MEDS: PROTONIX PO SCH ×2 (05:57→14:34)
[2019-07-10] MEDS: SYNTHROID PO SCH ×2 (05:57→14:35)
--- NOTE | 2019-07-10 06:47 | GENERAL SURGERY PROGRESS NOTE ---
DATE: 07/10/2019 SUBJECTIVE: Patient seems to be doing okay. OBJECTIVE: Vital Signs: Patient is currently afebrile. Her vital signs are stable. General: No acute distress. Cardiovascular: Regular rate and rhythm. Lungs: Grossly clear. Abdomen: Dressing intact. Retention sutures in place. Hypoactive bowel sounds. ASSESSMENT AND PLAN: A 69-year-old female status post exploratory laparotomy for wound dehiscence. Postoperative state. At this time, she is doing okay. She is tolerating a regular diet, but she has not had definitive return of bowel function, although she has passed some gas. Her INR is still elevated at over 4, so will continue to monitor her. She needs to mobilize more. cc: MD Sebastian Vora MD
[2019-07-10 07:16] LABS: BASO# 0.02 X1000 (0.0-0.2); BASO% 0.2 % (0.0-0.8); EOS# 0.28 X1000 (0.0-0.7); EOS% 3.1 % (0.0-10.0); HEMATOCRIT 29.8 % (37.0-47.0); HEMOGLOBIN 8.9 g/dL (12.0-16.0); IMM GRAN# 0.03 X1000 (0.0-0.04); IMM GRAN% 0.3 % (0.0-0.5); LYMPH# 0.64 X1000 (1.2-3.4); LYMPH% 7.2 % (20.5-51.1); MCH 27.3 PG (27-31); MCHC 29.9 g/dL (33-37); MCV 91.4 FL (81-99); MONO# 0.77 X1000 (0.11-0.59); MONO% 8.6 % (1.7-9.3); MPV 9.8 FL (7.4-10.4); NEUT# 7.18 X1000 (1.4-6.5); NEUT% 80.6 % (42.2-75.2); PLT 430 X1000 (130-400); RBC 3.26 XMIL (4.2-5.4); RDW 16.4 % (11.5-14.5); WBC 8.92 X1000 (4.8-10.8)
[2019-07-10 07:23] LABS: CALCIUM 9.1 mg/dL (8.8-10.2); CREATININE 1.2 mg/dL (0.5-0.9); POTASSIUM 4.2 mmol/L (3.5-5.1)
[2019-07-10 08:07] LABS: INR 4.17
[2019-07-10 08:16] LABS: PROTIME 41.7 Seconds (11.0-16.0)
[2019-07-10] MEDS: DUONEB (A & A) INH SCH ×5 (08:19→23:29)
[2019-07-10] MEDS: PULMICORT INH SCH ×2 (08:20→19:07)
[2019-07-10] MEDS: DEMADEX PO SCH (11:06)
[2019-07-10] MEDS: BYSTOLIC PO SCH (11:06)
[2019-07-10] MEDS: DEPAKOTE PO SCH (11:06)
[2019-07-10] MEDS: CORDARONE PO SCH (11:06)
[2019-07-10] MEDS ORDERED: LASIX IV ONE (11:50)
[2019-07-10] MEDS: D5 1/2 NS + KCL 20 MEQ 1,000 ML IV SCH ×3 (13:45→22:02)
--- NOTE | 2019-07-10 14:59 | PROGRESS NOTE ---
DATE: 07/10/2019 SUBJECTIVE: No acute events overnight. OBJECTIVE: Vital Signs: Temperature 97.9 degrees, pulse 59, respiratory rate 20, blood pressure 148/68, oxygen saturation 95% on 4 L of nasal cannula. HEENT: Head normocephalic, no trauma. PERRLA. Neck: Supple. No JVD. No masses. Central trachea. Chest: Clear to auscultation. No wheezing. No rales. Abdomen: Soft. She does have a binder. Some bowel sounds. Extremities: No clubbing, no cyanosis, 2+ lower extremity edema. Neurological: The patient is awake, alert, and oriented x3. No focal deficits. LABORATORY DATA: WBC 8.9, hemoglobin 8.9, hematocrit 29.8, platelets 430,000. INR 4.1. Sodium 139, potassium 4.2, chloride 98, bicarbonate 30, BUN 12, creatinine 1.2, glucose 101, calcium 9.1. ASSESSMENT AND PLAN: 1. Wound dehiscence status post exploratory laparotomy with lysis of adhesions and re-closure of the upper midline wound, postoperative day #5. She seems to be doing better. She is passing gas. Surgery on board. 2. Metastatic colon cancer, status post open splenic flexure mobilization with transverse colectomy and liver biopsy. This procedure was done on 06/22/2019, now presented with wound dehiscence. 3. Chronic atrial fibrillation on chronic anticoagulation. INR is still elevated. We will monitor. We are holding warfarin. 4. Hypercoagulable state. Aware. 5. Hypertension, stable. 6. Chronic obstructive pulmonary disease, not in exacerbation. Continue with oxygen. She is also on home oxygen. 7. Obstructive sleep apnea. Aware. 8. Gastroesophageal reflux disease. Continue with the same management. 9. Chronic kidney disease. This is her baseline. She seems to be a little bit overloaded. I will add a x1 dose of Lasix to see how she does. 10. Hypothyroidism. Continue with levothyroxine. 11. Leukocytosis resolved. Continue with same management. cc: Sebastian Vee MD
[2019-07-10] MEDS: MIRAPEX PO SCH (22:02)
[2019-07-10] MEDS: PRAVACHOL PO SCH (22:03)
[2019-07-11] MEDS: OFIRMEV 1000 MG/ISOTONIC SOLN 1,000 MG/100 ML BOTTLE IV SCH ×4 (00:08→17:30)
[2019-07-11] MEDS: ZOSYN 3.375 GM in NS 50 ML IV SCH ×4 (00:09→18:52)
[2019-07-11] MEDS: MORPHINE IV PRN ×4 (01:30→17:28)
[2019-07-11] MEDS: D5 1/2 NS + KCL 20 MEQ 1,000 ML IV SCH ×2 (01:31→17:31)
[2019-07-11] MEDS: PROTONIX PO SCH (06:18)
[2019-07-11] MEDS: SYNTHROID PO SCH (06:18)
--- NOTE | 2019-07-11 07:04 | GENERAL SURGERY PROGRESS NOTE ---
DATE: 07/11/2019 SUBJECTIVE: Patient seems to be doing okay. She has had a little bit of nausea. She has passed gas but has not had a bowel movement. OBJECTIVE: Vital Signs: Patient is currently afebrile. Vital signs are stable. General: No acute distress. Cardiovascular: Regular rate and rhythm. Lungs: Grossly clear. Abdomen: Soft, appropriately tender. Some bowel sounds auscultated. ASSESSMENT AND PLAN: A 69-year-old female status post exploratory laparotomy for wound dehiscence. Postoperative state. At this time, she seems to be doing okay, but she has not had definitive return of bowel function. May need to consider something like MiraLAX on her in the next couple days if no improvement. I would like to see her ambulate more and have more definitive return of bowel function before we discharge her. cc: MD Sebastian Vora MD
[2019-07-11 07:12] LABS: BASO# 0.03 X1000 (0.0-0.2); BASO% 0.4 % (0.0-0.8); HEMATOCRIT 30.1 % (37.0-47.0); HEMOGLOBIN 8.8 g/dL (12.0-16.0); IMM GRAN# 0.05 X1000 (0.0-0.04); IMM GRAN% 0.7 % (0.0-0.5); LYMPH# 0.75 X1000 (1.2-3.4); LYMPH% 11.2 % (20.5-51.1); MCH 26.8 PG (27-31); MCHC 29.2 g/dL (33-37); MCV 91.8 FL (81-99); MPV 9.5 FL (7.4-10.4); NEUT# 5.05 X1000 (1.4-6.5); NEUT% 75.7 % (42.2-75.2); PLT 428 X1000 (130-400); RBC 3.28 XMIL (4.2-5.4); RDW 16.3 % (11.5-14.5); WBC 6.68 X1000 (4.8-10.8)
[2019-07-11 07:40] LABS: CALCIUM 8.9 mg/dL (8.8-10.2); CREATININE 1.1 mg/dL (0.5-0.9); POTASSIUM 3.9 mmol/L (3.5-5.1)
[2019-07-11 07:50] LABS: INR 4.45; PROTIME 43.9 Seconds (11.0-16.0)
[2019-07-11] MEDS: DUONEB (A & A) INH SCH ×5 (07:56→22:49)
[2019-07-11] MEDS: PULMICORT INH SCH ×2 (07:56→19:40)
[2019-07-11] MEDS ORDERED: LASIX IV ONE (10:00)
[2019-07-11] MEDS: DEPAKOTE PO SCH (10:04)
[2019-07-11] MEDS: BYSTOLIC PO SCH (10:04)
[2019-07-11] MEDS: CORDARONE PO SCH (10:05)
[2019-07-11] MEDS: DEMADEX PO SCH (10:05)
--- NOTE | 2019-07-11 12:07 | PROGRESS NOTE ---
DATE: 07/11/2019 SUBJECTIVE: No acute events overnight. No changes compared with yesterday. I will give her an extra dose of Lasix today. OBJECTIVE: Vital Signs: Temperature 98.3 degrees, pulse 56, respiratory rate 20, blood pressure 145/62, oxygen saturation 100% on 3 L of nasal cannula. HEENT: Head normocephalic, no trauma. PERRLA. Neck: Supple. No JVD. No masses. Central trachea. Chest: Clear to auscultation. Some crepitus at the bases. Abdomen: Soft. She does have a binder. Some bowel sounds. Extremities: She has 2+ lower extremity edema. No clubbing. No cyanosis. Neurological: The patient is sleepy but arousable. She is oriented x3. She is following commands. LABORATORY DATA: WBC 6.6, hemoglobin 9.8, hematocrit 30.1, platelets 428,000. Sodium 137, potassium 3.9, chloride 97, bicarbonate 32, BUN 11, creatinine 1.1, glucose 83, calcium 8.9. INR 4.4. ASSESSMENT AND PLAN: 1. Wound dehiscence, status post exploratory laparotomy with lysis of adhesions and re-closure of the upper midline wound, postoperative day #6. She seems to be doing better. She is passing gas. No bowel movement so far. Surgery on board. 2. Metastatic colon cancer, status post open splenic flexure mobilization with transverse colectomy and liver biopsy. This procedure was done on 06/22/2019, now presented with wound dehiscence. 3. Chronic atrial fibrillation on chronic anticoagulation. INR is still elevated. We will monitor. We are holding warfarin. I will give her a dose of vitamin K by mouth today. 4. Hypercoagulable state. Aware. 5. Hypertension, stable. 6. Chronic obstructive pulmonary disease, not in exacerbation. Continue with oxygen. She is also on home oxygen. 7. Obstructive sleep apnea. Aware. 8. Gastroesophageal reflux disease. Continue with same management. 9. Chronic kidney disease, stable. This is her baseline. 10. Hypothyroidism. Continue with levothyroxine. 11. Fluid overload. I will give her an extra dose of Lasix today. 12. Leukocytosis, resolved. Continue with same management. cc: Sebastian Vee MD
[2019-07-11] MEDS: AMBIEN PO SCH (21:43)
[2019-07-11] MEDS: MIRAPEX PO SCH (21:47)
[2019-07-11] MEDS: PRAVACHOL PO SCH (21:47)
[2019-07-12] MEDS: MORPHINE IV PRN ×5 (00:22→19:01)
[2019-07-12] MEDS: ZOSYN 3.375 GM in NS 50 ML IV SCH ×4 (00:22→19:00)
[2019-07-12] MEDS: OFIRMEV 1000 MG/ISOTONIC SOLN 1,000 MG/100 ML BOTTLE IV SCH ×4 (00:22→18:29)
[2019-07-12] MEDS: D5 1/2 NS + KCL 20 MEQ 1,000 ML IV SCH ×2 (06:19→09:24)
--- NOTE | 2019-07-12 06:56 | GENERAL SURGERY PROGRESS NOTE ---
DATE: 07/12/2019 SUBJECTIVE: The patient is a little more nauseated today. She has not passed much gas. She has not had a bowel movement. OBJECTIVE: Vital Signs: The patient is currently afebrile. Vital signs are stable. General Examination: No acute distress. Cardiovascular: Regular rate and rhythm. Lungs: Grossly clear. Abdomen: Soft, slightly more distended. Dressing intact on the incision. Some hypoactive bowel sounds. ASSESSMENT AND PLAN: A 69-year-old female status post exploratory laparotomy for wound dehiscence. Postoperative state. At this time, she may be developing a little bit of an ileus. We will continue to monitor and continue to monitor her nausea. If it seems to worsen, we may need to get an abdominal film and back off on some of her diet. We will continue supportive care for now. cc: MD Henry Vora MD
[2019-07-12 07:01] LABS: BASO# 0.02 X1000 (0.0-0.2); BASO% 0.3 % (0.0-0.8); EOS# 0.19 X1000 (0.0-0.7); EOS% 2.8 % (0.0-10.0); HEMATOCRIT 31.1 % (37.0-47.0); IMM GRAN# 0.04 X1000 (0.0-0.04); IMM GRAN% 0.6 % (0.0-0.5); LYMPH# 0.66 X1000 (1.2-3.4); LYMPH% 9.6 % (20.5-51.1); MCH 26.5 PG (27-31); MCHC 28.9 g/dL (33-37); MCV 91.5 FL (81-99); MONO# 0.63 X1000 (0.11-0.59); MONO% 9.2 % (1.7-9.3); MPV 9.3 FL (7.4-10.4); NEUT# 5.33 X1000 (1.4-6.5); NEUT% 77.5 % (42.2-75.2); PLT 427 X1000 (130-400); RDW 16.4 % (11.5-14.5); WBC 6.87 X1000 (4.8-10.8)
[2019-07-12] MEDS: PROTONIX PO SCH (07:03)
[2019-07-12] MEDS: SYNTHROID PO SCH (07:03)
[2019-07-12 07:30] LABS: CALCIUM 9.2 mg/dL (8.8-10.2); CREATININE 1.1 mg/dL (0.5-0.9); POTASSIUM 3.8 mmol/L (3.5-5.1)
[2019-07-12 07:33] LABS: INR 4.75; PROTIME 46.3 Seconds (11.0-16.0)
[2019-07-12] MEDS: DEPAKOTE PO SCH (08:10)
[2019-07-12] MEDS: CORDARONE PO SCH (08:11)
[2019-07-12] MEDS: DEMADEX PO SCH (08:11)
[2019-07-12] MEDS: BYSTOLIC PO SCH (08:11)
[2019-07-12] MEDS: PULMICORT INH SCH ×2 (09:03→18:56)
[2019-07-12] MEDS: DUONEB (A & A) INH SCH ×5 (09:03→22:48)
[2019-07-12] MEDS ORDERED: LASIX IV ONE (14:58)
--- NOTE | 2019-07-12 15:26 | PROGRESS NOTE ---
DATE: 07/12/2019 SUBJECTIVE: The patient is resting in bed. Not in any obvious distress. OBJECTIVE: Vital Signs: Temperature 97.8 degrees, pulse 58, respirations 18, blood pressure is 154/63, oxygen saturation is 94%. HEENT: Atraumatic, normocephalic. Cardiovascular: S1, S2. Respiratory: Has evidence of good entry bilaterally. Abdomen: Wound site dressed. Central Nervous System: No obvious no obvious focal deficit noted. LABS: WBC 6.87, hematocrit 31.1 with a platelet count of 427,000. Sodium is 138, potassium 3.8, chloride is 97, bicarb is 32, BUN is 10, creatinine is 1.1. ASSESSMENT AND PLAN: 1. Status post exploratory laparotomy for wound dehiscence. The patient now developing ileus. Surgical team following. 2. Metastatic colon cancer, status post open splenic flexure mobilization with transverse colectomy and liver biopsy. 3. Chronic atrial fibrillation. Aware. 4. Hypertension. Optimize blood pressure control. 5. Chronic obstructive pulmonary disease. She is asymptomatic. 6. History of obstructive sleep apnea. Aware. 7. Gastroesophageal reflux disease. Continue proton pump inhibitor. 8. Chronic kidney disease. Stable. Avoid nephrotoxic agents. 9. Hypothyroidism. Continue levothyroxine. cc: Henry Teague MD
[2019-07-12] MEDS: AMBIEN PO SCH (21:32)
[2019-07-12] MEDS: MIRAPEX PO SCH (21:48)
[2019-07-12] MEDS: PRAVACHOL PO SCH (21:48)
[2019-07-13] MEDS: OFIRMEV 1000 MG/ISOTONIC SOLN 1,000 MG/100 ML BOTTLE IV SCH ×4 (02:25→19:09)
[2019-07-13] MEDS: ZOSYN 3.375 GM in NS 50 ML IV SCH ×4 (02:52→21:47)
[2019-07-13] MEDS: D5 1/2 NS + KCL 20 MEQ 1,000 ML IV SCH ×3 (02:52→21:47)
[2019-07-13] MEDS: SYNTHROID PO SCH ×2 (05:53→07:52)
[2019-07-13] MEDS: PROTONIX PO SCH ×2 (05:53→07:51)
--- NOTE | 2019-07-13 07:10 | GENERAL SURGERY PROGRESS NOTE ---
DATE: 07/13/2019 SUBJECTIVE: Patient seems to be doing okay. She is less nauseated. She had a bowel movement this morning. OBJECTIVE: Vital Signs: Patient is currently afebrile. Her vital signs are stable. General: No acute distress. Cardiovascular: Regular rate and rhythm. Lungs: Grossly clear. Abdomen: Soft. Binder in place. Dressing in place. Bowel sounds auscultated. ASSESSMENT AND PLAN: A 69-year-old female, status post exploratory laparotomy for wound dehiscence. Postoperative state: At this time, I think her ileus seems to be improving, but would like to have continued definitive return of bowel function and maybe consider discharge home tomorrow. My partners will cover while I am gone. cc: MD Henry Vora MD
[2019-07-13] MEDS: PULMICORT INH SCH ×2 (08:18→19:20)
[2019-07-13] MEDS: DUONEB (A & A) INH SCH ×5 (08:18→23:35)
[2019-07-13] MEDS: MORPHINE IV PRN ×2 (09:29→16:38)
[2019-07-13] MEDS: CORDARONE PO SCH (09:58)
[2019-07-13] MEDS: DEPAKOTE PO SCH (09:58)
[2019-07-13] MEDS: DEMADEX PO SCH (09:58)
[2019-07-13] MEDS: BYSTOLIC PO SCH (09:58)
[2019-07-13] MEDS: MIRAPEX PO SCH (21:47)
[2019-07-13] MEDS: PRAVACHOL PO SCH (21:47)
[2019-07-13] MEDS: AMBIEN PO SCH (21:47)
[2019-07-14] MEDS: OFIRMEV 1000 MG/ISOTONIC SOLN 1,000 MG/100 ML BOTTLE IV SCH ×2 (00:47→06:30)
[2019-07-14] MEDS: D5 1/2 NS + KCL 20 MEQ 1,000 ML IV SCH ×2 (00:48→09:49)
[2019-07-14] MEDS: ZOSYN 3.375 GM in NS 50 ML IV SCH ×2 (04:39→09:53)
[2019-07-14] MEDS: SYNTHROID PO SCH (06:30)
[2019-07-14] MEDS: PROTONIX PO SCH (06:30)
[2019-07-14] MEDS ORDERED: LASIX IV ONE (07:00)
[2019-07-14] MEDS: DUONEB (A & A) INH SCH ×2 (08:15→12:00)
[2019-07-14] MEDS: PULMICORT INH SCH (08:18)
[2019-07-14 08:36] LABS: BASO# 0.03 X1000 (0.0-0.2); BASO% 0.5 % (0.0-0.8); EOS% 3.1 % (0.0-10.0); HEMATOCRIT 29.9 % (37.0-47.0); HEMOGLOBIN 8.7 g/dL (12.0-16.0); IMM GRAN# 0.07 X1000 (0.0-0.04); IMM GRAN% 1.1 % (0.0-0.5); LYMPH# 0.83 X1000 (1.2-3.4); LYMPH% 12.7 % (20.5-51.1); MCH 26.5 PG (27-31); MCHC 29.1 g/dL (33-37); MCV 91.2 FL (81-99); MONO% 10.7 % (1.7-9.3); MPV 9.2 FL (7.4-10.4); NEUT% 71.9 % (42.2-75.2); PLT 358 X1000 (130-400); RBC 3.28 XMIL (4.2-5.4); RDW 16.5 % (11.5-14.5); WBC 6.53 X1000 (4.8-10.8)
[2019-07-14 08:52] LABS: INR 3.79; PROTIME 38.6 Seconds (11.0-16.0)
[2019-07-14 09:12] LABS: CALCIUM 8.7 mg/dL (8.8-10.2); CREATININE 1.1 mg/dL (0.5-0.9); POTASSIUM 3.5 mmol/L (3.5-5.1)
[2019-07-14] MEDS: BYSTOLIC PO SCH (09:49)
[2019-07-14] MEDS: CORDARONE PO SCH (09:49)
[2019-07-14] MEDS: DEMADEX PO SCH (09:49)
[2019-07-14] MEDS: DEPAKOTE PO SCH (09:49)
[2019-07-14] MEDS: MORPHINE IV PRN ×2 (09:52→15:15)
[2019-07-14 11:53] VITALS: BP 126/54
--- NOTE | 2019-07-14 15:30 | PROGRESS NOTE ---
DATE: 07/14/2019 INTERVAL HISTORY: The patient doing well. P.o. intake significantly improved. Likely discharge today noted and no medical barriers to discharge noted although she will need close follow-up of her INR. No new complaints. No acute events overnight. REVIEW OF SYSTEMS: Twelve-point review of systems negative except as per interval history. LABORATORIES: WBC 6.5, hemoglobin 8.7, hematocrit 29.9, platelets 358,000. INR 379 down from 4.75 yesterday. Sodium 133, potassium 3.5, BUN 9, creatinine 1.1 which is stable. VITAL SIGNS: T-max 97.9 degrees, pulse 55, respirations 17, blood pressure 126/55, and O2 saturation 94%. PHYSICAL EXAMINATION: General: No acute distress. Vital signs: As above. HEENT: Normocephalic, atraumatic. Cardiovascular: Slightly bradycardic, but regular. No murmurs noted. Pulmonary: Clear to auscultation bilaterally. Abdomen: Soft. Abdominal binder in place. Bowel sounds present. Nontender. Extremities: Peripheral pulses intact. No clubbing, cyanosis. Neurologic: Cranial nerves grossly intact. No focal deficits. Psychiatric: Normal mood and affect. Cooperative. Awake, alert. ASSESSMENT AND PLAN: 1. Wound dehiscence with exploratory laparotomy by Surgery. The patient then with postop ileus which is now resolved. P.o. intake much improved. Likely discharge today noted. 2. Metastatic colon cancer. The patient is status post open splenic flexure mobilization with transverse colectomy and liver biopsy previously with wound that then dehisced as above which is now again improved. 3. Chronic atrial fibrillation, stable. She was on warfarin prior to admission. Supratherapeutic INR which remained markedly elevated for quite some time. It has taken a very long time to trend down, but does appear to be trending down slowly. Recommend the patient be off warfarin for at least 2 more days and then preferably have INR recheck prior to resuming at a lower dose of 1 mg which has been prescribed. I discussed this with the patient and her . They expressed understanding. 4. Hypertension. Continue home medications. 5. Chronic obstructive pulmonary disease. No sign of exacerbation. Monitor. 6. Gastroesophageal reflux disease. Continue PPI. 7. Chronic kidney disease, stable. 8. Hypothyroidism. Continue Synthroid.
--- NOTE | 2019-07-14 16:18 | DISCHARGE SUMMARY ---
ADMISSION DATE: 07/05/2019 DISCHARGE DATE: 07/14/2019 ADMITTING DIAGNOSIS: Upper midline wound dehiscence. DISCHARGE DIAGNOSIS: Upper midline wound dehiscence. PRINCIPAL PROCEDURE: Exploratory laparotomy with reclosure of upper midline wound on 07/05/2019. DISCHARGE DISABILITY: Full. DISCHARGE DIET: Regular. DISCHARGE DISPOSITION: She will return to our outpatient offices in 2 weeks for followup. She is to follow up in the [facility]ology [facility] for Coumadin dosing. DISCHARGE MEDICATIONS: She is to return to her home medication but she is not to start her Coumadin for 2 more days and start that at 1 mg daily. HOSPITAL COURSE: Ms. Tejal Ferro is a 69-year-old white female who Dr. Knox performed an exploratory laparotomy and a transverse colon resection for metastatic colon cancer. I saw her in the emergency department on 07/05/2019 with an upper midline wound dehiscence and she was taken urgently back to the operating room for exploratory laparotomy and closure of this wound dehiscence. Her postoperative convalescence was complicated by a prolonged ileus which resolved several days prior to her discharge. During her hospitalization, we consulted the hospitalist to help with her multiple medical problems. It must be noted that a right-sided central venous line was placed during her hospitalization. We slowly increased her diet as bowel activity became clear. Her INR remained elevated throughout her hospitalization despite no Coumadin. On discharge, her midline incision was intact with retention sutures. She was still having some fluid drainage from this wound but it was serous fluid and not infection. Her white blood cell count was normal. She was tolerating a diet. She is having bowel activity. She was able to carefully get around in her room. She is on home O2. It was felt safe to discharge her home under the care of her on the day of discharge with followup in our outpatient office in 2 weeks. She is to follow up in the cardiology [facility] for further Coumadin dosing. At discharge, her heart rate was 55, blood pressure 126/54, O2 saturation 94% and she was afebrile. White blood cell count was 6, hematocrit was 30%. Electrolytes were within normal limits. BUN was 9, creatinine 1.1. Her PTT was 38.6, INR 3.79. cc: Stefania Yan MD
[2019-07-15] MEDS: DUONEB (A & A) INH SCH (03:06)
== END 2019-07-14 15:45 | disposition home or self-care (01) | DRG 908 ==
LOC: ED 04:36 → 4N 04:36 → OBSVTOIN 11:37 → 4N 07-13 09:11
PROVIDERS: ADMIT Internal Medicine; ATTEND Surgery